=== PATIENT | male | born 1980 | race American Indian/Alaskan Native ===

== ENCOUNTER 2018-12-27 18:34 | Emergency (ER) | payer OTHER ==
[2018-12-27 18:45] VITALS: BMI 27.8
[2018-12-27 18:48] VITALS: BP 158/96; RESP 18; TEMP 99
[2018-12-27] MEDS ORDERED: Naproxen 550 mg Tab PO STA (19:30)
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
[2018-12-27 21:26] VITALS: PULSE 87; O2SAT 98
--- NOTE | 2018-12-28 13:48 | RAD ---
Date of service: 12/27/2018 PROCEDURE: Cervical Spine Radiographs. HISTORY: Pain. COMPARISON: None available. FINDINGS: BONES: Straightened cervical curvature without fracture or spondylolisthesis identified. The C1-2 articulation appears normal as well as the craniocervical junction. Posterior elements appear intact diffusely. No destructive bony lesion appreciable. DISC SPACES: Normal. SOFT TISSUES: Normal. No prevertebral soft tissue swelling. OTHER FINDINGS: None. IMPRESSION: Straightened curvature without fracture or spondylolisthesis identified. No soft tissue pathology grossly evident.
--- NOTE | 2018-12-28 15:30 | RAD ---
Date of service: 12/27/2018 PROCEDURE: Radiographs of the Lumbar Spine. HISTORY: pain COMPARISON: None available. FINDINGS: BONES: Alignment appears satisfactory. No listhesis. No acute displaced fracture identified. DISC SPACES: Unremarkable. OTHER FINDINGS: None. IMPRESSION: No acute displaced fracture or subluxation identified.
== END 2018-12-27 21:25 | disposition home or self-care (01) ==
LOC: ED 18:34
DX: M54.5 Low back pain (principal); M54.2 Cervicalgia; V89.2XXA Person injured in unspecified motor-vehicle accident, traffic, initial encounter